=== PATIENT | female | born 1985 | race Caucasian/White ===

== ENCOUNTER → 2024-02-14 17:58 | Outpatient (REF) | payer OTHER, SELFPAY | LOC: HWWDC 17:58 | PROVIDERS: ATTENDING PHYSICIAN Physician Assistant Medical | DX: Z12.31 Encounter for screening mammogram for malignant neoplasm of breast (principal); Z80.3 Family history of malignant neoplasm of breast | CPT/HCPCS: 77063; 77067 ==

== ENCOUNTER → 2024-02-23 13:53 | Outpatient (REF) | payer OTHER, SELFPAY | LOC: WDC 13:53 | PROVIDERS: ATTENDING PHYSICIAN Physician Assistant Medical | DX: R92.30 Dense breasts, unspecified (principal); R92.2 Inconclusive mammogram | CPT/HCPCS: 76641 ==

== ENCOUNTER → 2024-04-09 13:55 | Outpatient (REF) | payer BC, SELFPAY | LOC: HWRAD 13:55 | PROVIDERS: ATTENDING PHYSICIAN Nurse Practitioner Obstetrics & Gynecology; FAMILY PHYSICIAN Physician Assistant Medical | DX: R10.2 Pelvic and perineal pain (principal) | CPT/HCPCS: 76830; 76856 ==

== ENCOUNTER 2024-06-06 12:03 | Emergency (ER) | payer BC, SELFPAY ==
[2024-06-06 12:14] VITALS: BP 139/84
--- NOTE | 2024-06-06 12:19 | ED.PDOC.TRB ---
ED Provider Triage
-
Patient seen by provider in Triage?: Seen in Triage
A medical screening examination has been initiated by a qualified medical provider. Based on the assessment performed at this time, it has been determined that an emergent medical condition may exist and the patient has been informed that further
medical evaluation and possible additional diagnostic testing may be needed.
HPI: This is a medical evaluation conducted in person to initiate diagnostic evaluation and provide initial therapeutics. Please see further documentation by the treating clinician.
GENERAL: Alert ,tearful
EYE: No visual abnormalities.
NECK: Trachea midline
ENT: No visible abnormalities.
LUNGS: No acute respiratory distress
NEUROLOGICAL: Alert and oriented
SKIN: no visible lesions.
MUSCULOSKELETAL: Moving extremities normally
PSYCH: Normal and appropriate interaction.
38-year-old female presenting to the emergency department today with concerns of flank discomfort right-sided worse than left. Feels similar to previous kidney stones. Also has some nausea. No significant reproducible pain on assessment.
Patient is moving freely. Plan for CT scan further assessment of possible stone. Additional labs and medication for symptoms were ordered. At this
[2024-06-06 12:25] VITALS: BMI 35.5
[2024-06-06] MEDS: ZOFRAN 4 MG IV (12:38)
[2024-06-06] MEDS: NSS 1000 IV (12:38)
[2024-06-06] MEDS: TORADOL 15 MG IV (12:38)
--- NOTE | 2024-06-06 12:45 | ED.GENMED ---
History of Present Illness
<SHANDA Henry Last Filed: 06/07/24 16:51>
General
Chief Complaint: Back Pain
Source: patient
Exam Limitations: none
Time Seen by Provider: 06/06/24 12:32
Nursing documentation reviewed up to this point in time: agreed with
History of Present Illness
History of Present Illness:
pt is a 38 y/o F with h/o kidney stones, vertebral artery dissection
pe
here with lowerback pain radiation to R lower abdomen, dec appetite x 3 days, nausea, some sharp pains with urination
she also has been constipated until this am whens he used an enema and was able to move her bowels somewhat
she has a hemorrhoid which is painful
pt has also had some chills
she thinks the lower back pain and urinary sypmtoms remind her of her kidney stone in thepast (has had stent and lithotripsy) but this is different in intensity and she never had the constipation/lack of appetite with it
no known fever
no vaginal symptoms
Past History
<SHANDA Henry Last Filed: 06/07/24 16:51>
Past History
ED Past Medical History: Hypothyroidism, Other (R vertebral artery dissection, Kidney stones, Vertigo) and Other (Psoriasis)
ED Past Surgical History: , Urological and Other ([place] teeth)
Social History
Tobacco: Non-smoker
Alcohol: Occasional
Personal:
Living: with family
Employment: Employed
Family History
Family History: Other
Review of Systems
<SHANDA Henry Last Filed: 06/07/24 16:51>
Review of Systems
Allergies reviewed?: Yes
All Other Systems: Not applicable
Phy Exam
<SHANDA Henry Last Filed: 06/07/24 16:51>
Physical Exam
Physical Exam:
GENERAL: Alert , in no apparent distress
EYE: pupils equal and reactive
NECK: Supple
ENT: o/p clr, mmm.
CARDIAC: Regular rate and rhythm .
LUNGS: Clear breath sounds bilaterally, no acute respiratory distress, no wheezes/rales/rhonchi
ABDOMEN: Soft, moderate right flank and right lower quadrant tenderness, moderate McBurney's point tenderness, no r/g, no cvat, normal bowel sounds
Rectal small external nonbleeding nonthrombosed hemorrhoid, no fecal impaction
NEUROLOGICAL: Alert and oriented, no focal neuro deficits
SKIN: Warm and dry, skin intact.
MUSCULOSKELETAL: No edema, well perfused.
PSYCH: Normal and appropriate interaction.
Course
<Sintia Torres PA-C - Last Filed: 06/07/24 16:51>
Orders/Labs/Results
Orders:
Orders
06/06/24 12:16
Ketorolac [Toradol] 15 mg IV NOW STA
Ondansetron Injectable [Zofran] 4 mg IV NOW STA
Test Result ONCE
06/06/24 12:18
0.9% Sodium Chloride 1000 ml [Nss] 1,000 ml IV BOLUS
06/06/24 12:25
Complete Blood Count/With Diff Urgent
Comprehensive Metabolic Panel Urgent
HCG, Serum Qualitative Screen Urgent
06/06/24 12:41
CT Abd/Pel (IV only)-DH only Urgent
Comment:
Reason For Exam: RLQ pain, back pain, h/o kidney stones, tender
06/06/24 12:55
Urinalysis Reflex To Culture Urgent
Date Specimen was Collected: 06/06/24
Time Specimen was Collected: 12:49
Urine Microscopic Reflex Cult Urgent
06/06/24 17:52
Acetaminophen [Tylenol] 1,000 mg PO NOW STA
Abnormal Lab Results
06/06/24 06/06/24
12:25 12:55
Absolute Lymphs (auto) 0.9 L 10^3/uL
(1.2-3.4)
Lymphocytes % 16.1 L %
(20.5-51.1)
Monocytes % 10.2 H %
(1.7-9.3)
Ur Occult Blood Reflex 1+ A
(Negative)
Urine Bacteria (Reflex) Few A
(Negative)
06/06/24 12:25
06/06/24 12:25
Vital Signs
Initial and Last Documented VS:
Initial Vital Signs
Temp Pulse Resp BP Pulse Ox
99.5 F 78 16 139/84 99
06/06/24 12:14 06/06/24 12:14 06/06/24 12:14 06/06/24 12:14 06/06/24 12:14
Last Documented Vital Signs
Temp Pulse Resp BP Pulse Ox
99.5 F 79 18 126/85 99
06/06/24 12:14 06/06/24 18:05 06/06/24 16:00 06/06/24 18:05 06/06/24 14:00
<GRAEME Chase - Last Filed: 06/06/24 17:59>
Orders/Labs/Results
Orders:
Orders
06/06/24 12:16
Ketorolac [Toradol] 15 mg IV NOW STA
Ondansetron Injectable [Zofran] 4 mg IV NOW STA
Test Result ONCE
06/06/24 12:18
0.9% Sodium Chloride 1000 ml [Nss] 1,000 ml IV BOLUS
06/06/24 12:25
Complete Blood Count/With Diff Urgent
Comprehensive Metabolic Panel Urgent
HCG, Serum Qualitative Screen Urgent
06/06/24 12:41
CT Abd/Pel (IV only)-DH only Urgent
Comment:
Reason For Exam: RLQ pain, back pain, h/o kidney stones, tender
06/06/24 12:55
Urinalysis Reflex To Culture Urgent
Date Specimen was Collected: 06/06/24
Time Specimen was Collected: 12:49
Urine Microscopic Reflex Cult Urgent
06/06/24 17:52
Acetaminophen [Tylenol] 1,000 mg PO NOW STA
Abnormal Lab Results
06/06/24 06/06/24
12:25 12:55
Absolute Lymphs (auto) 0.9 L 10^3/uL
(1.2-3.4)
Lymphocytes % 16.1 L %
(20.5-51.1)
Monocytes % 10.2 H %
(1.7-9.3)
Ur Occult Blood Reflex 1+ A
(Negative)
Urine Bacteria (Reflex) Few A
(Negative)
06/06/24 12:25
06/06/24 12:25
Vital Signs
Initial and Last Documented VS:
Initial Vital Signs
Temp Pulse Resp BP Pulse Ox
99.5 F 78 16 139/84 99
06/06/24 12:14 06/06/24 12:14 06/06/24 12:14 06/06/24 12:14 06/06/24 12:14
Last Documented Vital Signs
Temp Pulse Resp BP Pulse Ox
99.5 F 79 18 126/85 99
06/06/24 12:14 06/06/24 18:05 06/06/24 16:00 06/06/24 18:05 06/06/24 14:00
<Sintia Torres PA-C - Last Filed: 06/07/24 16:51>
MDM/Problems Addressed
Differential Diagnosis Includes:
kidney stone, appendicitis
MDM/Problems Addressed:
right sided flank/abd pain to back x 3 days
some chills
some mild urinary symptoms that are vague
h/o kidney stones, still has appendix
on exam she has tenderness righ tflank and RLQ
no cva tendenress
hemorrhoid nonbleeding on exam nontender
no fecal impaction
will w/u with labs, ct, urine;
signed out to varsha mehta HAND SCUDDER at 1600
varsha:
Assumed care of patient, CAT scan CAT scan shows nonobstructing stones within the lower poles of the bilateral kidneys there is mild prominence of the base the appendix which is similar to prior. New mildly prominent right lower quadrant mesenteric
lymph nodes. Possible mesenteric adenitis as cause of patient's symptoms. Patient was given Toradol earlier and she reports that helped. Will give dose of Tylenol now. On exam she has mild right sided abdominal and lower tenderness however she
is no acute distress none guarding no fever feels well enough to go home. Discussed however close outpatient follow-up family doctor.
<GRAEME Chase - Last Filed: 06/06/24 17:59>
MDM/Problems Addressed
MDM/Problems Addressed:
Assumed care of patient, CAT scan CAT scan shows nonobstructing stones within the lower poles of the bilateral kidneys there is mild prominence of the base the appendix which is similar to prior. New mildly prominent right lower quadrant mesenteric
lymph nodes. Possible mesenteric adenitis as cause of patient's symptoms. Patient was given Toradol earlier and she reports that helped. Will give dose of Tylenol now. On exam she has mild right sided abdominal and lower tenderness however she
is no acute distress none guarding no fever feels well enough to go home. Discussed however close outpatient follow-up family doctor.
<Sintia Torres PA-C - Last Filed: 06/07/24 16:51>
*Critical Care Note
Total Time (30-74mins, 75-104mins- exclusive of procedures): Not Applicable
ED Attending Note
<Sintia Torres PA-C - Last Filed: 06/07/24 16:51>
-
Portions of this chart may have been created with voice recognition software.� Occasional wrong word or��sound alike� substitutions may have occurred due to the inherent limitations of voice recognition software.
Discharge Plan
Departure
Patient Disposition: Home (Routine Discharge)
Date of Disposition: 06/06/24
Time of Disposition: 17:57
Patient with high blood pressure during this ER visit?: Yes
Condition: Good
Covid-19: Not Applicable
Discharge Problem:
Abdominal pain
Instructions: Abdominal Pain, Adult ED
Prescriptions:
No Action
albuterol sulfate 1 PUFF HFA aerosol inhaler
2 puff inhalation R Q4HPRN PRN (Reason: sob)
levothyroxine 112 MCG tablet
112 mcg PO DAILY
guselkumab [Tremfya] 100 MG/ML syringe
100 mg SQ Q3M
aspirin 81 MG tablet,delayed release (DR/EC)
81 mg PO DAILY Qty: 30 0RF
lidocaine 1 PATCH adhesive patch,medicated
1 patch topical DAILY Qty: 7 0RF
meclizine 25 MG tablet
25 mg PO Q8HPRN PRN (Reason: dizziness) Qty: 15 0RF
prednisone 20 MG tablet
40 mg PO DAILY Qty: 10 0RF
ondansetron HCl 4 mg tablet
4 mg PO DAILY PRN (Reason: nausea and vomiting) 4 Days Qty: 7 0RF
Referrals:
Serene Shultz PA [Family Provider] -
Activity Restrictions/Additional Instructions:
As discussed you may alternate between ibuprofen and Tylenol for pain. Follow-up closely with your family doctor in the next several days for reevaluation of your symptoms and return if any worsening of symptoms.
Interventions
Interventions:
*Risk Screen - Suicide Last Done: 06/06/24 12:14
*General Assessment Last Done: 06/06/24 12:14
*Neglect/Abuse Screening Last Done: 06/06/24 12:14
ED- Fall Risk Assessment Last Done: 06/06/24 13:11
*ED COVID-19 Vaccine History Last Done: 06/06/24 13:11
*Nursing Disposition Last Done: 06/06/24 18:05
ED-Musculoskeletal Assessment Last Done: 06/06/24 12:59
Discharge Date and Time
Discharge Date/Time: 06/06/24 18:06
Print Language: YI
[2024-06-06 13:05] LABS: % Basophils 0.4 % (0-2); % Eosinophils 0.4 % (0-6); % Immature Granulocytes 0.2 % (0-0.5); % Lymphocytes 16.1 % (20.5-51.1); % Monocytes 10.2 % (1.7-9.3); % Neutrophils 72.7 % (42.2-75.2); Absolute Lymphocytes 0.9 10^3/uL (1.2-3.4); Absolute Monocytes 0.6 10^3/uL (0.1-0.6); Absolute Neutrophils 4.2 10^3/uL (1.4-6.5); Hematocrit 39.4 % (37.0-47.0); Hemoglobin 13.6 g/dL (12.0-16.0); Mean Corp Hgb Conc. 34.5 g/dL (33.0-37.0); Mean Corpuscular Hgb 28.9 pg (27.0-31.0); Mean Corpuscular Volume 83.8 fL (81.0-99.0); Mean Platelet Volume 10.1 fL (7.4-10.4); Nucleated Red Blood Cells % 0 %; Platelet Count 233 10^3/uL (130-400); Red Cell Dist. Width 12.5 % (11.5-14.5); White Blood Cell Count 5.7 10^3/uL (4.8-10.8)
[2024-06-06 13:08] LABS: ALT (SGPT) 16 U/L (0-35); AST (SGOT) 24 U/L (14-36); Albumin 4.5 g/dl (3.5-5.0); Alkaline Phosphatase 65 U/L (38-126); Blood Urea Nitrogen 16 mg/dl (7-17); Calcium 9.2 mg/dl (8.4-10.2); Carbon Dioxide 24 mmol/L (22-30); Chloride 104 mmol/L (98-107); Estimated Creatinine Clearance 112 ml/min; Glucose 93 mg/dl (70-99); Potassium 4.5 mmol/L (3.5-5.1); Sodium 138 mmol/L (135-145); Total Bilirubin 0.7 mg/dl (0.2-1.3); Total Protein 7.4 g/dl (6.3-8.2); eGFR > 60.00
[2024-06-06 13:11] LABS: HCG, Serum Qualitative Screen Negative
[2024-06-06 13:39] LABS: Urine Albumin Negative (Neg - Trace); Urine Bilirubin Negative (Negative); Urine Character Clear (Clear); Urine Color Yellow; Urine Glucose Negative (Negative); Urine Ketone Negative (Negative); Urine Leukocyte Negative (Negative); Urine Nitrite Negative (Negative); Urine Occult Blood 1+ (Negative); Urine Specific Gravity 1.015 (<1.030); Urine Urobilinogen Negative (Neg - 1+)
[2024-06-06 14:00] VITALS: BP 128/67
[2024-06-06 14:01] LABS: Urine Bacteria Few (Negative); Urine Red Blood Cell 0-2 /HPF (0-2); Urine Squamous Cell >30 /LPF (Few); Urine White Cell 0-2 /HPF (0-5)
[2024-06-06 16:00] VITALS: BP 133/67
[2024-06-06] MEDS: TYLENOL 1000 MG PO (17:57)
[2024-06-06 18:05] VITALS: BP 126/85
== END 2024-06-06 18:06 | disposition home or self-care (01) ==
LOC: EMR 12:03
PROVIDERS: Physician Assistant; EMERGENCY PHYSICIAN Emergency Medicine; FAMILY PHYSICIAN Physician Assistant Medical
DX: R10.31 Right lower quadrant pain (principal); R03.0 Elevated blood-pressure reading, without diagnosis of hypertension
CPT/HCPCS: 99285; 96374; 96375; 96361; 74177; 80053; 81003; 81015; 84703; 85025; Q9967

== ENCOUNTER 2024-06-29 16:12 | Inpatient (IN) | payer BC, SELFPAY ==
[2024-06-29] VITALS (10 sets, daily range): BP systolic 86–124; BP diastolic 52–89; BMI 35.2
--- NOTE | 2024-06-29 11:27 | ED.GENMED ---
History of Present Illness
General
Chief Complaint: Throat Problem
Time Seen by Provider: 06/29/24 11:27
History of Present Illness
History of Present Illness:
HPI: The patient comes in because of throat pain. She was diagnosed with tonsillitis yesterday and placed on amoxicillin because of severe throat pain and right ear pain and was told that there eardrum was 'bulging'. She has been spitting her
saliva out because the pain is so severe. She reports temperatures as high as 101 Fahrenheit.
EXAM:
GENERAL: The patient appears to be in mild to moderate distress
HEENT: Moist oral mucosa, there is erythema noted without definite exudate and there is no sign of HEALTHCARE FINANCIAL ANALYST however exam is somewhat limited, the uvula is midline
CARDIOVASCULAR: No murmurs, normal heart rate, regular rhythm, No chest wall tenderness
PULMONARY: No respiratory distress, breath sounds are clear and equal
ABDOMEN: Soft with no peritoneal signs, no tenderness
NEUROLOGIC: Excellent strength all extremities, no coordination deficits
PSYCHIATRIC: Appropriate mental status, normal insight and judgement
EXTREMITIES: Nontender, no edema, moves all extremities equally
SKIN: No rash, no lesions
TIME OF INITIAL ENCOUNTER: 11:30 AM
NUMBER AND COMPLEXITY OF PROBLEMS ADDRESSED AT THE ENCOUNTER
� Chronic conditions affecting care: Has had PE, has had dissection, IBS, hypothyroidism
� Acute Exacerbation and/or Progression of Chronic Illness: This is an acute problem
� Differential Diagnosis includes: Bacterial pharyngitis, viral pharyngitis, mono
AMOUNT AND/OR COMPLEXITY OF DATA TO BE REVIEWED AND ANALYZED
� I performed an independent evaluation of and my interpretation is:
EKG:
CT:
X-rays:
Laboratory Studies: White count 16.9, hCG negative, LFTs normal, positive mono screen, bicarb slightly low at 20, normal renal function
Other:
� Review of other/old records: The patient was seen here with abdominal pain just under 1 month ago
� Clinical information was obtained by an independent historian: None needed
� Prescriptions/Medications Considered but not given:
� Further testing considered but not performed:
RISK OF COMPLICATIONS AND/OR MORBIDITY OR MORTALITY OF PATIENT MANAGEMENT
� Social determinants of health affecting care: The patient lives at home
� Discussion with other providers:
� Escalation of care including admission/observation vs risk of discharge considered: The patient had difficult IV access and ultimately IV team was able to place a peripheral line. Leukocytosis is noted. She is found to be
mono positive. She is ordered 2 L of fluid and was given Zofran, IV fluids, IV Toradol, and IV steroids. I have also ordered IV clindamycin for the possibility of bacterial superinfection.
Past History
Past History
ED Past Medical History: Hypothyroidism, Other (R vertebral artery dissection, Kidney stones, Vertigo) and Other (Psoriasis)
ED Past Surgical History: , Urological and Other ([place] teeth)
Social History
Tobacco: Non-smoker
Alcohol: Occasional
Personal:
Living: with family
Employment: Employed
Family History
Family History: Other
Phy Exam
Physical Exam
Physical Exam:
See HPI
Course
Orders/Labs/Results
Orders:
Orders
06/29/24 11:38
0.9% Sodium Chloride 1000 ml [Nss] 1,000 ml IV BOLUS
Dexamethasone Sod Phosphate [Decadron] 10 mg IV NOW STA
Ketorolac [Toradol] 15 mg IV NOW STA
06/29/24 12:10
CT Neck With Iv Contrast Urgent
Comment:
Reason For Exam: severe anterior neck / throat pain / cannot reji po
06/29/24 12:27
Test Result ONCE
06/29/24 12:40
Rapid Strep Group A Urgent
JODIE Source: Throat/Pharynx
Specimen Description:
Date Specimen was Collected: 06/29/24
Time Specimen was Collected: 12:25
06/29/24 13:03
Complete Blood Count/With Diff Urgent
Comprehensive Metabolic Panel Urgent
HCG, Serum Qualitative Screen Urgent
Monotest Stat
06/29/24 13:23
Clindamycin 600 mg/50 ml [Cleocin] 600 mg in 50 ml IV NOW
06/29/24 13:43
0.9% Sodium Chloride 1000 ml [Nss] 1,000 ml IV BOLUS
Ondansetron Injectable [Zofran] 4 mg IV NOW STA
Abnormal Lab Results
06/29/24
13:03
WBC 16.9 H 10^3/uL
(4.8-10.8)
Hct 36.0 L %
(37.0-47.0)
Abs Immat Gran (auto) 0.1 H 10^3/uL
(0-0.05)
Absolute Neuts (auto) 14.2 H 10^3/uL
(1.4-6.5)
Absolute Monos (auto) 1.1 H 10^3/uL
(0.1-0.6)
Neutrophils % 83.9 H %
(42.2-75.2)
Lymphocytes % 9.0 L %
(20.5-51.1)
Carbon Dioxide 20 L mmol/L
(22-30)
Glucose 100 H mg/dl
(70-99)
Monoscreen Positive A
(Negative)
06/29/24 13:03
06/29/24 13:03
Vital Signs
Initial and Last Documented VS:
Initial Vital Signs
Temp Pulse Resp BP Pulse Ox
99.3 F 87 20 124/89 98
06/29/24 10:53 06/29/24 10:53 06/29/24 10:53 06/29/24 10:53 06/29/24 10:53
Last Documented Vital Signs
Temp Pulse Resp BP Pulse Ox
99.3 F 88 22 124/89 100
06/29/24 10:53 06/29/24 12:16 06/29/24 12:16 06/29/24 10:53 06/29/24 12:16
*Critical Care Note
Total Time (30-74mins, 75-104mins- exclusive of procedures): Not Applicable
ED Attending Note
-
Portions of this chart may have been created with voice recognition software.� Occasional wrong word or��sound alike� substitutions may have occurred due to the inherent limitations of voice recognition software.
Discharge Plan
Departure
Prescriptions:
No Action
albuterol sulfate 1 PUFF HFA aerosol inhaler
2 puff inhalation R Q4HPRN PRN (Reason: sob)
acetaminophen [Tylenol] 325 mg Tablet
650 mg PO Q6HPRN PRN (Reason: mild pain)
Theragen Tablet
1 tab PO DAILY
levothyroxine 125 mcg Tablet
125 mcg PO DAILY
ibuprofen [Advil] 200 mg Tablet
400 mg PO Q6HPRN PRN (Reason: mild pain)
amoxicillin 400 mg/5 mL suspension for reconstitution
400 mg PO BID
norethindrone (contraceptive) [Incassia] 0.35 mg Tablet
0.35 mg PO DAILY
fluticasone propionate [Flonase] 50 mcg/actuation [place],Suspension
1 spray INTRANASAL DAILYPRN PRN (Reason: allergies)
sertraline 50 mg Tablet
50 mg PO DAILY
Sotyktu 6 mg Tablet
6 mg PO DAILY
Toradol
60 mg PO Q6HPRN PRN (Reason: moderate pain)
Patient Comments:
06/29/24: Unable to confirm, not on [facility] record on 06/28/24 and not in [facility].
Referrals:
Serene Shultz PA [Family Provider] -
Interventions
Interventions:
*Risk Screen - Suicide Last Done: 06/29/24 12:16
*General Assessment Last Done: 06/29/24 10:53
*Neglect/Abuse Screening Last Done: 06/29/24 12:16
ED- Fall Risk Assessment Last Done: 06/29/24 12:16
*ED COVID-19 Vaccine History Last Done: 06/29/24 12:16
ED-EENT Assessment Last Done: 06/29/24 12:16
ED- Pulmonary Assessment Last Done: 06/29/24 12:16
Discharge Date and Time
Print Language: FRISIAN
[2024-06-29 13:13] LABS: % Basophils 0.2 % (0-2); % Eosinophils 0.1 % (0-6); % Immature Granulocytes 0.5 % (0-0.5); % Monocytes 6.3 % (1.7-9.3); % Neutrophils 83.9 % (42.2-75.2); Absolute Immature Granulocytes 0.1 10^3/uL (0-0.05); Absolute Lymphocytes 1.5 10^3/uL (1.2-3.4); Absolute Monocytes 1.1 10^3/uL (0.1-0.6); Absolute Neutrophils 14.2 10^3/uL (1.4-6.5); Hemoglobin 12.4 g/dL (12.0-16.0); Mean Corp Hgb Conc. 34.4 g/dL (33.0-37.0); Mean Corpuscular Hgb 28.6 pg (27.0-31.0); Mean Corpuscular Volume 83.1 fL (81.0-99.0); Nucleated Red Blood Cells % 0 %; Platelet Count 203 10^3/uL (130-400); Red Blood Cell Count 4.33 10^6/uL (4.20-5.40); Red Cell Dist. Width 12.8 % (11.5-14.5); White Blood Cell Count 16.9 10^3/uL (4.8-10.8)
[2024-06-29] MEDS: NSS 1000 IV ×2 (13:31→13:55)
[2024-06-29] MEDS: DECADRON 10 MG IV (13:32)
[2024-06-29] MEDS: TORADOL 15 MG IV (13:32)
[2024-06-29 13:36] LABS: HCG, Serum Qualitative Screen Negative
[2024-06-29 13:37] LABS: ALT (SGPT) 18 U/L (0-35); AST (SGOT) 21 U/L (14-36); Albumin 3.9 g/dl (3.5-5.0); Alkaline Phosphatase 73 U/L (38-126); Blood Urea Nitrogen 12 mg/dl (7-17); Calcium 9.1 mg/dl (8.4-10.2); Carbon Dioxide 20 mmol/L (22-30); Chloride 105 mmol/L (98-107); Estimated Creatinine Clearance > 125 ml/min; Glucose 100 mg/dl (70-99); Potassium 3.6 mmol/L (3.5-5.1); Sodium 139 mmol/L (135-145); Total Bilirubin 0.5 mg/dl (0.2-1.3); Total Protein 6.7 g/dl (6.3-8.2); eGFR > 60.00
[2024-06-29] MEDS: CLEOCIN 50 IV (13:38)
[2024-06-29 13:43] LABS: Monotest Positive (Negative)
[2024-06-29] MEDS: ZOFRAN 4 MG IV (13:51)
--- NOTE | 2024-06-29 15:21 | W.PN.UPDATE ---
Update Note
Progress Note Update
38-year-old female With throat pain. She was diagnosed with tonsillitis and prescribed amoxicillin comes back with fever and throat pain.
I personally performed a history and physical exam of the patient and discussed management with the resident. I reviewed the resident's note and agree with the documented findings and plan of care HPI/CC Except changes in my documentation
CT neck-Heterogeneous right parapharyngeal soft tissues, as noted above, most likely representing an inflammatory/infectious phlegmon with minimal extrinsic impression upon the right side of the upper airway. Developing abscess cannot be excluded.
Right tympanic membrane slight bulge
B/L Tonsillar exudate
CVS: S1-S2 normal
Chest: CTA B/L
Abdomen: Soft, NT / Bowel sounds present
Extremities: No edema, normal pulses
# Sore throat-Acute transudative tonsillitis
Unasyn IV since patient cannot swallow
IV fluids
NSAIDs and steroids for pain control
Monoscreen is positive also- May be false positive- No LNE
Strep throat screening pending
CT of the neck with contrast as above
# History of vertebral artery dissection-MRI did not show stroke- Not on ASA now
# Hypothyroidism-continue Synthroid 125 mcg daily
# History of PE in 2012
# Nephrolithiasis
# Psoriasis/Dermatomyositis on Sotyktu
# Mild prominence of the base of the appendix and mildly prominent right lower quadrant mesenteric lymph nodes-colonoscopy as outpatient
# IBS
# Obesity per BMI
# DVT Prophylaxis- Lovenox
# Full CODE
--- NOTE | 2024-06-29 16:03 | HPS.HSE ---
Family Physician
-
Family Physician: Serene Shultz
Chief Complaint
-
odynophagia
History of Present Illness
38 year old female with PMH of PE, dermatomyositis, psoriasis, hypothyroidism, ulcerative colitis, anxiety/depression, vertebral dissection presented today with odynophagia. Patient states that she was not able to tolerate solids and liquids
yesterday and was also having right ear pain. Patient was seen by her PCP and was given amoxicillin for presumed ear infection. This morning patient had a temperature of 102.1, odynophagia, chills, fatigue. She denies any drainage, ringing of the
ears. She denies any abdominal pain. She admits to some nausea this morning but no vomiting. Patient reports that she was diagnosed with a stomach bug 2 weeks ago which has now resolved. She is not on any anticoagulation medications. She does
take ASA due to h/o vertebral dissection. In ED she is afebrile, comfortable, leukocytosis 16k, mildly elevated BG level.
Medical History
Past Medical History
Past Medical History: Reports Other (PE, dermatomyositis, psoriasis, hypothyroidism, ulcerative colitis, anxiety/depression, right vertebral artery dissection)
Past Surgical History: Reports
Social History
Tobacco: Non-smoker
Alcohol: Occasional
Drug: None
Personal:
Living: With Family
Employment: Employed
Family History
Family History: Not pertinent
Allergies / Home Medications
Allergies reflects when Allergies were last updated in [facility].
Home Medications with original date entered in [facility]
Allergy/Medication List:
Allergies
Allergy/AdvReac Type Severity Reaction Status Date / Time
lorazepam [From Ativan] Allergy hyper, Verified 06/29/24 10:52
yells
prochlorperazine Allergy hyper, Verified 06/29/24 10:52
[From Compazine] eyes roll
back, yells
Sulfa (Sulfonamide Allergy mouth sores Verified 06/29/24 10:52
Antibiotics)
Home Medications
albuterol sulfate 90 mcg/actuation aerosol inhaler 2 puff inhalation R Q4HPRN PRN sob 07/04/19
Toradol 60 mg PO Q6HPRN PRN moderate pain 06/29/24
acetaminophen 325 mg tablet (Tylenol) 650 mg PO Q6HPRN PRN mild pain 06/29/24
amoxicillin 400 mg/5 mL oral suspension 400 mg PO BID 06/29/24
deucravacitinib 6 mg tablet (Sotyktu) 6 mg PO DAILY 06/29/24
fluticasone propionate 50 mcg/actuation nasal spray,suspension 1 spray intranasal DAILYPRN PRN allergies 06/29/24
ibuprofen 200 mg tablet (Advil) 400 mg PO Q6HPRN PRN mild pain 06/29/24
levothyroxine 125 mcg tablet 125 mcg PO DAILY 06/29/24
norethindrone (contraceptive) 0.35 mg tablet (Incassia) 0.35 mg PO DAILY 06/29/24
sertraline 50 mg tablet 50 mg PO DAILY 06/29/24
therapeutic multivitamin 1 tab PO DAILY 06/29/24
Review of Systems
-
Constitutional: Reports Fever, Fatigue and Chills
EENT: Reports Other (throat pain )
Physical Exam
Vital Signs
Vital Signs
Temp Pulse Resp BP Pulse Ox
99.3 F 88 22 117/85 97
06/29/24 10:53 06/29/24 12:16 06/29/24 12:16 06/29/24 14:00 06/29/24 15:15
Physical Exam
General: Conversant and Pain
HEENT: NormoCephalic, Anicteric and Other (erythema and swelling in b/l tonsils with exudates seen in right ); No Ears Appear Normal (budging TM in right, no drainage )
Respiratory: Clear
Cardiac: S1/S2 and Regular Rhythm
GI: Soft, Non Tender, Non Distended and Normal Bowel Sounds
Musculoskeletal: No Edema
Neuro: AO x 3
Psych: Calm
Laboratory Results
-
06/29/24 13:03
06/29/24 13:03
Laboratory Results
Total Bilirubin 0.5 mg/dl (0.2-1.3) 06/29/24 13:03
AST 21 U/L (14-36) 06/29/24 13:03
ALT 18 U/L (0-35) 06/29/24 13:03
Alkaline Phosphatase 73 U/L (38-126) 06/29/24 13:03
Impression/Plan
-
IMPRESSION:
Odynophagia likely due to acute tonsillitis
Leukocytosis
History of PE
Hypothyroidism
History of psoriasis
History of dermatomyositis
Seasonal allergies
PLAN:
Odynophagia likely due to acute tonsillitis
Presence of white exudates, in right tonsils with erythema and edema
Due to the exudates there can be formation of pus
Might need drainage. Neck CT negative for pharyngeal abscess
[place] test is positive.
Start IV Unasyn 3g IV q6 which covers group A Streptococcus
Tylenol solution for fever and pain
Toradol IV 10 mg q6 PRN for pain
IV Decadron 4 mg IV q8
Consult ENT
Monitor temp curve and WBC count
Will start clear liquid diet
Leukocytosis
due to acute tonsillitis
IV Unasyn
repeat CBC in am
History of PE
not currently on anticoagulation
Hypothyroidism
continue levothyroxine
History of psoriasis
Continue home medication
#History of dermatomyositis
#seasonal allergies - continue flonase an albuterol
DVT ppx- lovenox
CODE STATUS - full code
Diet- clear liquid
--- NOTE | 2024-06-29 16:58 | W.PN.UPDATE ---
Update Note
Progress Note Update
Reached out to ENT, Dr Sargent.
CT scan shows no abscess on neck CT so to continue IV Unasyn and Decadron. If clinical improvement on IV Unasyn then transition to Augmentin per ENT with outpatient f/u. Increasing Decadron to 8 mg IV q8. No history of Dm.
[2024-06-29] MEDS: ZOLOFT 50 MG PO (18:24)
[2024-06-29] MEDS: LOVENOX 40 MG SC (18:24)
[2024-06-29] MEDS: UNASYN IV (18:25)
[2024-06-29] MEDS: TORADOL 10 MG IV (20:44)
[2024-06-29] MEDS: FLUSH (NSS) 1 FLUSH IV ×2 (20:47→21:58)
[2024-06-29] MEDS: DECADRON 8 MG IV (21:54)
[2024-06-30] MEDS: UNASYN IV ×5 (00:04→23:07)
[2024-06-30] MEDS: FLUSH (NSS) 1 FLUSH IV (00:05)
[2024-06-30] MEDS: TORADOL 10 MG IV ×3 (02:41→23:07)
[2024-06-30] MEDS: SYNTHROID 125 MCG PO (05:51)
[2024-06-30] MEDS: DECADRON 8 MG IV (05:52)
[2024-06-30] MEDS: FLUSH (NSS) 2 FLUSH IV (05:53)
[2024-06-30 06:00] VITALS: BMI 34.8
[2024-06-30 07:00] VITALS: BP 117/67
[2024-06-30] MEDS: THERAGRAN 1 TABLET PO (07:44)
[2024-06-30] MEDS: ZOLOFT 50 MG PO (07:44)
--- NOTE | 2024-06-30 12:19 | W.PN.HOSP.TC ---
Addendum entered and electronically signed by Bob Cody MD 06/30/24 13:14:
sugar elevated.
Check A1C
Accu check AC HS
Original Note:
Today's Communication/Plan
-
Better today
change steroids to PO
IV AB Trial of a diet
If stable will discharge tomorrow
Assessment / Plan
Assessment / Plan
38-year-old female With throat pain. She was diagnosed with tonsillitis and prescribed amoxicillin comes back with fever and throat pain.
CT neck-Heterogeneous right parapharyngeal soft tissues, as noted above, most likely representing an inflammatory/infectious phlegmon with minimal extrinsic impression upon the right side of the upper airway. Developing abscess cannot be excluded.
B/L Tonsillar exudate and redness better
CVS: S1-S2 normal
Chest: CTA B/L
Abdomen: Soft, NT
# Sore throat-Acute transudative tonsillitis
Unasyn IV
IV fluids
NSAIDs for pain control
Steroid taper
Monoscreen is positive also- May be false positive- No LNE
Strep throat screening pending
ENT recommended steroid taper and AB
CT of the neck with contrast as above
# History of vertebral artery dissection-MRI did not show stroke- Not on ASA now
# Hypothyroidism-continue Synthroid 125 mcg daily
# History of PE in 2012
# Nephrolithiasis
# Psoriasis/Dermatomyositis on Sotyktu
# Mild prominence of the base of the appendix and mildly prominent right lower quadrant mesenteric lymph nodes-colonoscopy as outpatient
# IBS
# Obesity per BMI
# DVT Prophylaxis- Lovenox
# Full CODE
D/W RN
Anticipated Discharge: Within 24 hours
Subjective/Interval History
-
Date of Service: June 30, 2024
Objective Data
-
Vital Signs:
Vital Signs
Temp Pulse Resp BP Pulse Ox
98.0 F 63 17 117/67 100
06/30/24 11:00 06/30/24 07:00 06/30/24 07:00 06/30/24 07:00 06/30/24 09:28
I&O
06/29/24 06/30/24 07/01/24
06:59 06:59 06:59
Intake Total 480 / 480
Balance 480 / 480
[2024-06-30] MEDS: DELTASONE 40 MG PO (12:32)
[2024-06-30 13:09] LABS: % Basophils 0.1 % (0-2); % Immature Granulocytes 0.5 % (0-0.5); % Lymphocytes 4.8 % (20.5-51.1); % Monocytes 1.3 % (1.7-9.3); % Neutrophils 93.3 % (42.2-75.2); Absolute Immature Granulocytes 0.1 10^3/uL (0-0.05); Absolute Monocytes 0.3 10^3/uL (0.1-0.6); Absolute Neutrophils 18.9 10^3/uL (1.4-6.5); Hematocrit 37.2 % (37.0-47.0); Hemoglobin 13.1 g/dL (12.0-16.0); Mean Corp Hgb Conc. 35.2 g/dL (33.0-37.0); Mean Corpuscular Hgb 29.8 pg (27.0-31.0); Mean Corpuscular Volume 84.5 fL (81.0-99.0); Mean Platelet Volume 10.2 fL (7.4-10.4); Nucleated Red Blood Cells % 0 %; Platelet Count 241 10^3/uL (130-400); Red Cell Dist. Width 12.6 % (11.5-14.5); White Blood Cell Count 20.2 10^3/uL (4.8-10.8)
[2024-06-30 13:10] LABS: Blood Urea Nitrogen 14 mg/dl (7-17); Calcium 9.2 mg/dl (8.4-10.2); Carbon Dioxide 18 mmol/L (22-30); Chloride 107 mmol/L (98-107); Estimated Creatinine Clearance > 125 ml/min; Glucose 279 mg/dl (70-99); Potassium 3.6 mmol/L (3.5-5.1); Sodium 139 mmol/L (135-145); eGFR > 60.00
[2024-06-30 14:15] LABS: Glycohemoglobin (HgbA1c) 5.2 % (4.0-5.6)
[2024-06-30 15:00] VITALS: BP 130/78
--- NOTE | 2024-06-30 17:11 | CM ---
met with patient at [facility].lingives with her and son in [facility] [place] with 2 beatriz,her bed and bath is on second level,she is totally I amb and with her adl.she has nevr had a vn or been to ip rehab.p
cp is dr whitfield and she uses [facility] in [place].
PMH:vertebral artery dissection,pe,hypothyroid
patient is adm with tonsillitis.strep throat results pending,iv unasyn,iv vanco,ivf,trial diet,changing steroids to po.
Plan:dc home with no needs when stable for dc.
[2024-06-30] MEDS: LOVENOX 40 MG SC (17:47)
[2024-06-30] MEDS: TYLENOL ORAL SOLUTION 650 MG PO (20:14)
[2024-06-30] MEDS: MUCINEX 600 MG PO (23:06)
[2024-06-30 23:30] VITALS: BP 107/69
[2024-07-01] MEDS: SYNTHROID 125 MCG PO (05:55)
[2024-07-01] MEDS: UNASYN IV (05:56)
[2024-07-01 07:00] VITALS: BP 106/63
[2024-07-01] MEDS: DELTASONE 40 MG PO (08:05)
[2024-07-01] MEDS: THERAGRAN 1 TABLET PO (08:05)
[2024-07-01] MEDS: MUCINEX 600 MG PO (08:06)
[2024-07-01] MEDS: TORADOL 10 MG IV (08:13)
[2024-07-01] MEDS: ZOLOFT 50 MG PO (08:13)
[2024-07-01 08:21] LABS: Glucose - Point of Care 118 mg/dl (70-99)
[2024-07-01 10:22] LABS: Hematocrit 34.9 % (37.0-47.0); Hemoglobin 12.3 g/dL (12.0-16.0); Mean Corp Hgb Conc. 35.2 g/dL (33.0-37.0); Mean Corpuscular Hgb 28.9 pg (27.0-31.0); Mean Corpuscular Volume 81.9 fL (81.0-99.0); Mean Platelet Volume 10.7 fL (7.4-10.4); Platelet Count 252 10^3/uL (130-400); Red Blood Cell Count 4.26 10^6/uL (4.20-5.40); Red Cell Dist. Width 13.1 % (11.5-14.5); White Blood Cell Count 18.6 10^3/uL (4.8-10.8)
[2024-07-01 10:37] LABS: Blood Urea Nitrogen 24 mg/dl (7-17); Calcium 9.3 mg/dl (8.4-10.2); Carbon Dioxide 19 mmol/L (22-30); Chloride 107 mmol/L (98-107); Estimated Creatinine Clearance 111 ml/min; Glucose 173 mg/dl (70-99); Potassium 3.7 mmol/L (3.5-5.1); Sodium 142 mmol/L (135-145); eGFR > 60.00
--- NOTE | 2024-07-01 11:20 | W.PN.ENT ---
Today's Communication
-
d/c planning
Impression / Plan
-
OK to d/c home w pred taper as prev recommended. Can f/u w ENT as out pt 2-3wk after d/c. [phone]
Subjective Data
-
Patient seen and examined. ENT called bc patient complained of left throat pain.
Objective Data
-
Vital Signs
Temp Pulse Resp BP Pulse Ox
98.2 F 73 18 106/63 100
07/01/24 11:00 07/01/24 07:00 07/01/24 07:00 07/01/24 07:00 07/01/24 07:00
Intake & Output
06/30/24 07/01/24 07/02/24
06:59 06:59 06:59
Intake:
Oral fluids 240 / 240 2310 / 2310
IV piggybacks 240 / 240
Other:
Number of approximated MODERATE 3 3
amounts of urine
Lab Results
07/01/24 10:02
07/01/24 10:02
Calcium 9.3 mg/dl (8.4-10.2) 07/01/24 10:02
Total Bilirubin 0.5 mg/dl (0.2-1.3) 06/29/24 13:03
AST 21 U/L (14-36) 06/29/24 13:03
ALT 18 U/L (0-35) 06/29/24 13:03
Alkaline Phosphatase 73 U/L (38-126) 06/29/24 13:03
Physical Exam
-
B/l tonsillar exudates, erythema, widely patent airway, minimal cervical LAD
--- NOTE | 2024-07-01 11:29 | W.PN.HOSP.TC ---
Addendum entered and electronically signed by Bob Cody MD 07/01/24 11:59:
Leucocytosis due to steroids.
D/W ENT
Unclear if this is [place]. But precautions discussed to avo8id injury etc.
Also how it spreads discussed.
OK for discharge
Total discharge time 36 min
Original Note:
Today's Communication/Plan
-
She looks better
Tolerating diet
Wants to see ENT
Hopefully discharge today if stable
Assessment / Plan
Assessment / Plan
38-year-old female With throat pain. She was diagnosed with tonsillitis and prescribed amoxicillin comes back with fever and throat pain.
CT neck-Heterogeneous right parapharyngeal soft tissues, as noted above, most likely representing an inflammatory/infectious phlegmon with minimal extrinsic impression upon the right side of the upper airway. Developing abscess cannot be excluded.
B/L Tonsillar exudate and redness better
CVS: S1-S2 normal
Chest: CTA B/L
Abdomen: Soft, NT
says she haqs more pain on the left and wants to see ENT .
# Sore throat-Acute transudative tonsillitis
Unasyn IV
NSAIDs for pain control
Steroid taper
Monoscreen is positive also- May be false positive- No LNE. H/O [place] in the past.
Strep throat neg
ENT recommended steroid taper and AB
CT of the neck with contrast as above
# History of vertebral artery dissection-MRI did not show stroke- Not on ASA now
# Hyperglycemia-hemoglobin A1c 5.2. Hyperglycemia likely secondary to steroids. Will get better as steroids are tapered.
# Hypothyroidism-continue Synthroid 125 mcg daily
# History of PE in 2012
# Nephrolithiasis
# Psoriasis/Dermatomyositis on Sotyktu
# Mild prominence of the base of the appendix and mildly prominent right lower quadrant mesenteric lymph nodes-colonoscopy as outpatient
# IBS
# Obesity per BMI
# DVT Prophylaxis- Lovenox
# Full CODE
D/W RN
D/W ENT - will see pt today
Anticipated Discharge: Today
Subjective/Interval History
-
Date of Service: July 01, 2024
Objective Data
-
Labs:
Laboratory Results
07/01/24
10:02
WBC 18.6 H
Hgb 12.3
Hct 34.9 L
Plt Count 252
Sodium 142
Potassium 3.7
Chloride 107
Carbon Dioxide 19 L
BUN 24 H
Creatinine 0.7
Glucose 173 H
Calcium 9.3
Vital Signs:
Vital Signs
Temp Pulse Resp BP Pulse Ox
98.2 F 73 18 106/63 100
07/01/24 11:00 07/01/24 07:00 07/01/24 07:00 07/01/24 07:00 07/01/24 07:00
I&O
06/30/24 07/01/24 07/02/24
06:59 06:59 06:59
Intake Total 480 / 480 2310 / 2310
Balance 480 / 480 2310 / 2310
--- NOTE | 2024-07-01 12:00 | W.DS.TRANS ---
Addendum entered and electronically signed by Bob Cody MD 07/01/24 15:04:
Dictation- [id number]
Original Note:
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
-
Discharge Instructions:
Discharge Diagnosis/Procedures Acute tonsillitis, positive [place] screen,
hypothyroidism, history of PE, psoriasis
Diet As tolerated
Driving Restrictions As prior to admission
Blood Work HbA1C 6 months.
Instructions:
Stand-Alone Forms:
Changes to Home Medications: Yes
Discharge Medications:
DC Medications w/original date entered in [facility]
albuterol sulfate 90 mcg/actuation aerosol inhaler 2 puff inhalation R Q4HPRN PRN sob 07/04/19
acetaminophen 325 mg tablet (Tylenol) 650 mg PO Q6HPRN PRN mild pain 06/29/24
deucravacitinib 6 mg tablet (Sotyktu) 6 mg PO DAILY Autoimmune Disorder 06/29/24
fluticasone propionate 50 mcg/actuation nasal spray,suspension 1 spray intranasal DAILYPRN PRN allergies 06/29/24
ibuprofen 200 mg tablet (Advil) 400 mg PO Q6HPRN PRN mild pain 06/29/24
levothyroxine 125 mcg tablet 125 mcg PO DAILY@06 Thyroid 06/29/24
norethindrone (contraceptive) 0.35 mg tablet (Incassia) 0.35 mg PO DAILY Hormonal Agent 06/29/24
sertraline 50 mg tablet 50 mg PO DAILY Depression 06/29/24
therapeutic multivitamin 1 tab PO DAILY 06/29/24
acetaminophen 650 mg/20.3 mL oral solution 650 mg (20.3 mL) PO Q4HPRN PRN fever and pain #0 mL 07/01/24
amoxicillin 875 mg-potassium clavulanate 125 mg tablet 1 tab PO BID throat #10 tabs 07/01/24
famotidine 20 mg tablet (Pepcid) 20 mg PO BID while on steroids and Ibuprofen #10 tabs 07/01/24
prednisone 10 mg tablet See Rx Instructions .Route .COMPLEX throat #15 tabs 07/01/24
Home Medication Changes
new
amoxicillin 875 mg-potassium clavulanate 125 mg tablet 1 tab PO BID throat #10 tabs 07/01/24
famotidine 20 mg tablet (Pepcid) 20 mg PO BID while on steroids and Ibuprofen #10 tabs 07/01/24
prednisone 10 mg tablet See Rx Instructions .Route .COMPLEX throat #15 tabs 07/01/24
Pending Results: No
[2024-07-01 12:04] LABS: Glucose - Point of Care 111 mg/dl (70-99)
[2024-07-01] MEDS: TYLENOL ORAL SOLUTION 650 MG PO (12:38)
[2024-07-01 13:10] VITALS: BP 103/61
--- NOTE | 2024-07-01 14:12 | W.PN.UPDATE ---
Update Note
Progress Note Update
Reevaluated the patient at her request. Throat with less exudates on the left side now.
Stable for discharge
== END 2024-07-01 15:12 | disposition home or self-care (01) | DRG 153 ==
LOC: 3 WEST ACU 16:12
PROVIDERS: ADMITTING PHYSICIAN Hospitalist; EMERGENCY PHYSICIAN Emergency Medicine; FAMILY PHYSICIAN Physician Assistant Medical
DX: J03.90 Acute tonsillitis, unspecified (principal); E03.9 Hypothyroidism, unspecified; L40.8 Other psoriasis; J30.2 Other seasonal allergic rhinitis; N20.0 Calculus of kidney; B27.90 Infectious mononucleosis, unspecified without complication; E66.9 Obesity, unspecified; Z68.34 Body mass index [BMI] 34.0-34.9, adult; Z88.2 Allergy status to sulfonamides; Z88.8 Allergy status to other drugs, medicaments and biological substances; Z79.890 Hormone replacement therapy; Z79.899 Other long term (current) drug therapy; Z86.711 Personal history of pulmonary embolism
CPT/HCPCS: 70491; 80048; 80053; 82962; 83036; 84703; 85025; 85027; 86308; 87070; 87880; 96361; 96365; 96375; 99285; Q9967

== ENCOUNTER 2024-11-04 14:47 | Emergency (ER) | payer BC, SELFPAY ==
[2024-11-04 14:56] VITALS: BP 123/85
[2024-11-04] MEDS: TYLENOL 1000 MG PO (16:36)
[2024-11-04] MEDS: ADACEL 0.5 ML IM (16:36)
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
== END 2024-11-04 17:28 | disposition home or self-care (01) ==
LOC: EMR 14:47
PROVIDERS: EMERGENCY PHYSICIAN Emergency Medicine; FAMILY PHYSICIAN Physician Assistant Medical
DX: S01.81XA Laceration without foreign body of other part of head, initial encounter (principal); S93.402A Sprain of unspecified ligament of left ankle, initial encounter; R51.9 Headache, unspecified; W18.09XA Striking against other object with subsequent fall, initial encounter; X50.1XXA Overexertion from prolonged static or awkward postures, initial encounter; E03.9 Hypothyroidism, unspecified; L40.9 Psoriasis, unspecified; K58.9 Irritable bowel syndrome, unspecified; Z87.442 Personal history of urinary calculi; Z86.711 Personal history of pulmonary embolism
CPT/HCPCS: 99283; 29515; 12011; 73610; 90715

== ENCOUNTER → 2025-02-25 06:58 | Outpatient (REF) | payer BC, SELFPAY | LOC: HWWDC 06:58 | PROVIDERS: ATTENDING PHYSICIAN Physician Assistant Medical; REFERRING PHYSICIAN Nurse Practitioner Obstetrics & Gynecology | DX: Z12.31 Encounter for screening mammogram for malignant neoplasm of breast (principal) | CPT/HCPCS: 77063; 77067 ==

== ENCOUNTER → 2025-03-13 09:30 | Outpatient (REF) | payer BC, SELFPAY | LOC: WDC 09:30 | PROVIDERS: ATTENDING PHYSICIAN Physician Assistant Medical; REFERRING PHYSICIAN Nurse Practitioner Obstetrics & Gynecology | DX: R92.8 Other abnormal and inconclusive findings on diagnostic imaging of breast (principal) | CPT/HCPCS: 76642 ==

== ENCOUNTER 2025-05-20 13:39 | Emergency (ER) | payer BC, SELFPAY ==
[2025-05-20 13:41] VITALS: BP 128/81
[2025-05-20 14:26] LABS: Hematocrit 41.3 % (37.0-47.0); Hemoglobin 13.9 g/dL (12.0-16.0); Mean Corp Hgb Conc. 33.7 g/dL (33.0-37.0); Mean Corpuscular Volume 85.7 fL (81.0-99.0); Nucleated Red Blood Cells % 0 %; Platelet Count 322 10^3/uL (130-400); Red Cell Dist. Width 13.0 % (11.5-14.5)
[2025-05-20 14:39] LABS: COVID-19 Antigen Negative (Negative)
[2025-05-20 14:48] LABS: HCG, Serum Qualitative Screen Negative
[2025-05-20 14:50] LABS: ALT (SGPT) 20 U/L (0-35); AST (SGOT) 18 U/L (14-36); Albumin 4.0 g/dl (3.5-5.0); Alkaline Phosphatase 56 U/L (38-126); Blood Urea Nitrogen 17 mg/dl (7-17); Calcium 9.3 mg/dl (8.4-10.2); Carbon Dioxide 27 mmol/L (22-30); Chloride 102 mmol/L (98-107); Glucose 87 mg/dl (70-99); Potassium 4.5 mmol/L (3.5-5.1); Sodium 134 mmol/L (135-145); Total Protein 6.8 g/dl (6.3-8.2); eGFR > 60.00
[2025-05-20 14:56] LABS: Troponin I < 0.012 ng/ml
[2025-05-20 14:58] LABS: INR 0.94; PT 12.9 Sec (11.4-14.6)
[2025-05-20] MEDS: TYLENOL 1000 MG PO (20:37)
[2025-05-20 20:47] VITALS: BMI 36.3
[2025-05-20 20:48] VITALS: BP 112/73
[2025-05-20 21:42] LABS: D-Dimer 0.29 ug/mlFEU (0.00-0.50)
--- NOTE | 2025-05-20 22:07 | ED.GENMED ---
History of Present Illness
General
Chief Complaint: Breathing Problem
Source: patient
Time Seen by Provider: 05/20/25 19:48
History of Present Illness
History of Present Illness:
Note:
CHIEF COMPLAINT(S)
Shortness of breath, chest tightness, lightheadedness, ear discomfort.
HISTORY OF PRESENT ILLNESS
The patient is a 39-year-old female who presents with shortness of breath, chest tightness, and dizziness. The patient reports a recent history of COVID-19, with an initial positive test over a week ago followed by a negative test this past Tuesday.
She states that her COVID symptoms improved, but she is now experiencing tightness in the right upper chest, which she describes as a rubber band stretching. The patient has a past medical history of pulmonary embolism (PE) on the right side and
describes the current chest sensations as similar to her previous PE. She experiences windedness with minimal exertion and episodes of lightheadedness.
The patient reports a sensation of ear fullness and recurring issues with her ears, including the presence of a tympanostomy tube in the right ear, placed due to persistent fluid and infections. She indicates an arterial dissection in 2019 in the
cervical region, managed with antiplatelet therapy.
Despite this history, she is not currently on blood-thinning medications as per previous medical advice. The patient has experienced anxiety, difficulties sleeping, and fatigue following the resolution of the acute COVID-19 symptoms. She has also
ceased the use of cough medicine containing codeine four days ago due to concerns about its effects.
PAST MEDICAL AND SURIGICAL HISTORY
- Pulmonary Embolism (PE) on the right side.
- Arterial Dissection in 2019, treated with antiplatelet medication for one and a half years.
- History of dermatomyositis diagnosed and in remission since 2012.
ADDITIONAL HISTORY OBTAINED FROM SOURCES OTHER THAN THE PATIENT
No additional history obtained.
CHRONIC MEDICAL CONDITIONS SIGNIFICANTLY AFFECTING CARE
- Dermatomyositis, currently in remission.
SOCIAL DETERMINANTS AFFECTING HEALTH
The patient reports significant fatigue and inability to perform daily tasks such as walking to the car due to breathlessness.
REVIEW OF SYSTEMS
- Respiratory: Reports intermittent cough. No production of blood-tinged sputum.
- Cardiovascular: Describes chest tightness and past history of PE.
- Neurological: Experiences frequent dizziness and lightheadedness.
- Ear, Nose, and Tongue: Ear discomfort with a history of ear tube placement.
- General: Recent history of feeling jittery and sleep disturbances.
PHYSICAL EXAM
General: Alert, no acute distress.
Skin: Warm, dry.
Head: Normocephalic, atraumatic.
Neck: Supple, trachea midline.
Eye, Ears, Nose, Mouth and Throat: Oral mucosa moist. Right tympanic membrane normal with exception of scarring noted at the middle portion.
Cardiovascular: Normal peripheral perfusion, no edema.
Respiratory: Respirations are non-labored.
Gastrointestinal: Abdomen nondistended.
Back: Normal range of motion, Normal alignment.
Musculoskeletal: Normal ROM, normal strength.
Neurological: Alert and oriented to person, place, time, and situation. No focal neurological deficit observed.
Psychiatric: Cooperative, appropriate mood & affect.
PLAN
1. Obtain a D-Dimer test to evaluate the presence of possible thrombotic activity. If negative, rule out pulmonary embolism. Further imaging such as a CT scan to be considered if positive.
2. Administer Extra Strength Tylenol for pain relief, especially addressing ear pressure and discomfort. Consider Toradol if the response to Tylenol is insufficient.
3. Monitor symptoms and review results of blood tests to determine if further intervention is necessary.
DIFFERENTIAL DIAGNOSIS
The Differential Diagnosis includes, in no particular order and is not limited to:
1. Recurrent Pulmonary Embolism
2. [id number] Syndrome
3. Anxiety Disorder
4. Cardiovascular Activities (related to previous arterial dissection)
5. Respiratory Infection (exacerbated by previous COVID-19)
6. Eustachian Tube Dysfunction (related to tympanostomy)
7. Musculoskeletal Pain
8. Acute Coronary Syndrome
9. Thyroid Dysfunction
10. Vestibular Disorder
Disposition:
SUMMARY OF ENCOUNTER
The patient, a female recovering from a recent COVID-19 infection, presented with generalized weakness and chest discomfort, expressing concern about a pulmonary embolism due to her past medical history. An EKG was performed, which showed normal
sinus rhythm, normal axis, and no acute ischemic changes. Blood tests revealed a normal basic metabolic panel (BMP), normal troponin levels, and negative D-dimer, effectively ruling out a pulmonary embolism. A COVID-19 test was also negative.
However, leukocytosis was noted with a white blood cell count of 15,000, though hemoglobin and platelet levels were normal, with no left shift observed. Her symptoms were suspected to be post-viral in nature. Recommendations included vitamin D,
vitamin C, and zinc supplementation, increased fluid intake, and to follow up with her primary care physician (PCP) on an outpatient basis. The patient was deemed okay for discharge.
DISPOSITION
Discharge
ASSESSMENT
Post-viral syndrome following recent COVID-19 infection; generalized weakness and chest discomfort without evidence of pulmonary embolism.
PLAN
The patient is advised to take vitamin D, vitamin C, and zinc supplements, increase fluid intake, and follow up with her primary care physician (PCP) as an outpatient.
INDEPENDENT REVIEW OF LABS AND INTERPRETATION OF TESTS
My independent review of the EKG indicates normal sinus rhythm with a normal axis and no acute ischemic changes.
My independent review of the BMP is normal.
My independent review of the troponin is normal.
My independent review of D-Dimer indicates a negative result, ruling out pulmonary embolism.
My independent review of the COVID test is negative.
My independent review of the CBC shows leukocytosis with a white blood cell count of 15,000, but hemoglobin and platelets are normal, with no left shift noted.
PATIENT EDUCATION AND COUNSELING
The patient was counseled on the potential post-viral nature of her symptoms following COVID-19. Recommendations were provided regarding supplementation with vitamin D, vitamin C, and zinc, in addition to increasing fluid intake to support recovery.
FOLLOW-UP INSTRUCTIONS
The patient was instructed to follow up with her primary care physician for ongoing management and evaluation.
MEDICAL DECISION MAKING
-Complexity of Data Reviewed: Chronic conditions affecting care include history of pulmonary embolism. Differential diagnoses considered included recurrent pulmonary embolism, [id number] syndrome, anxiety disorder, cardiovascular activities,
respiratory infection, Eustachian tube dysfunction, musculoskeletal pain, acute coronary syndrome, thyroid dysfunction, and vestibular disorder.
-Data:
Category 1
Lab tests reviewed include EKG, BMP, troponin, D-Dimer, and CBC.
-Risk:
The potential post-viral syndrome was considered, and the patient was advised on supportive measures including supplements and increased fluid intake. Prescription medication was not prescribed, focusing instead on outpatient management with
follow-up for potential changes. Consideration of Admission/Observation was considered given the complexity and risk of the patients presentation. However, the patient is deemed safe for outpatient management due to stable work-up results,
reassuring examination findings, and agreement for discharge with reliable follow-up.
DIAGNOSIS
Post-Viral Syndrome (ICD-10: B94.8)
Leukocytosis (ICD-10: D72.829)
Past History
Past History
ED Past Medical History: Hypothyroidism, Other (R vertebral artery dissection, Kidney stones, Vertigo) and Other (Psoriasis)
ED Past Surgical History: , Urological and Other ([place] teeth)
Social History
Tobacco: Non-smoker
Alcohol: Occasional
Personal:
Living: with family
Employment: Employed
Family History
Family History: Other
Phy Exam
Physical Exam
Physical Exam:
.
Course
Orders/Labs/Results
Orders:
Orders
05/20/25 13:43
Electrocardiogram (*1) Urgent
Reason for Study: Chest Pain
EKG- Treatment ONCE
05/20/25 13:44
Test Result ONCE
Chest [CR Chest - 2 Views ] Urgent
Comment:
Reason For Exam: MONTERO
05/20/25 14:01
Comprehensive Metabolic Panel Urgent
HCG, Serum Qualitative Screen Urgent
Comment: Notify provider if positive test present
Prothrombin Time Urgent
05/20/25 14:02
COVID-19 Antigen Urgent
Source: Nasal Swab
Complete Blood Count/With Diff Urgent
Troponin I Urgent
05/20/25 20:12
Acetaminophen [Tylenol] 1,000 mg PO NOW STA
05/20/25 21:15
D-Dimer Urgent
Abnormal Lab Results
05/20/25 05/20/25
14:01 14:02
WBC 15.3 H 10^3/uL
(4.8-10.8)
Abs Immat Gran (auto) 0.3 H 10^3/uL
(0-0.05)
Absolute Neuts (auto) 10.8 H 10^3/uL
(1.4-6.5)
Absolute Monos (auto) 0.7 H 10^3/uL
(0.1-0.6)
Immature Gran % 2.1 H %
(0-0.5)
Sodium 134 L mmol/L
(135-145)
05/20/25 14:02
05/20/25 14:01
Vital Signs
Initial and Last Documented VS:
Initial Vital Signs
Temp Pulse Resp BP Pulse Ox
98.6 F 62 19 128/81 99
05/20/25 13:41 05/20/25 13:41 05/20/25 13:41 05/20/25 13:41 05/20/25 13:41
Last Documented Vital Signs
Temp Pulse Resp BP Pulse Ox
98.6 F 74 16 132/76 100
05/20/25 13:41 05/20/25 23:40 05/20/25 23:40 05/20/25 23:40 05/20/25 23:40
*Pulse Oximetry
SaO2: 99
Oxygen Mode of Delivery: Room air
Patient hypoxic: no
*Critical Care Note
Total Time (30-74mins, 75-104mins- exclusive of procedures): Not Applicable
ED Attending Note
-
Portions of this chart may have been created with voice recognition software.� Occasional wrong word or��sound alike� substitutions may have occurred due to the inherent limitations of voice recognition software.
Discharge Plan
Departure
Patient Disposition: Home (Routine Discharge)
Date of Disposition: 05/20/25
Time of Disposition: 22:29
Patient with high blood pressure during this ER visit?: No
Discharge Problem:
Weakness generalized, Chest pain, Dyspnea
Instructions: Chest Pain (DC), Shortness of breath, Weakness
Prescriptions:
No Action
albuterol sulfate 1 PUFF HFA aerosol inhaler
2 puff inhalation R Q4HPRN PRN (Reason: sob)
acetaminophen [Tylenol] 325 mg Tablet
650 mg PO Q6HPRN PRN (Reason: mild pain)
therapeutic multivitamin Tablet
1 tab PO DAILY
levothyroxine 125 mcg Tablet
125 mcg PO DAILY@06
ibuprofen [Advil] 200 mg Tablet
400 mg PO Q6HPRN PRN (Reason: mild pain)
norethindrone (contraceptive) [Incassia] 0.35 mg Tablet
0.35 mg PO DAILY
fluticasone propionate 50 mcg/actuation [place],Suspension
1 spray INTRANASAL DAILYPRN PRN (Reason: allergies)
sertraline 50 mg Tablet
50 mg PO DAILY
Sotyktu 6 mg Tablet
6 mg PO DAILY
acetaminophen 650 mg/20.3 mL Solution
650 mg PO Q4HPRN PRN (Reason: fever and pain) Qty: 0 0RF
prednisone 10 mg Tablet
See Rx Instructions .ROUTE .COMPLEX Qty: 15 0RF
Rx Instructions:
Take By Mouth:
40 mg daily x1 day, 30 mg daily x2 days,
20 mg daily x2 days, 10 mg daily x1 day.
amoxicillin-pot clavulanate 875-125 mg tablet
1 tab PO BID Qty: 10 0RF
famotidine [Pepcid] 20 mg tablet
20 mg PO BID Qty: 10 0RF
Referrals:
Serene Shultz PA [Family Provider, Family Practice]
Activity Restrictions/Additional Instructions:
Please drink plenty of fluids. Please consider using vitamin C, vitamin D and zinc as discussed. Return immediately for difficulty breathing, worsening chest discomfort, coughing up blood, fevers or any other concerns. Please see your doctor in
the next 3 to 5 days for follow-up and reevaluation.
Interventions
Interventions:
*Risk Screen - Suicide Last Done: 05/20/25 13:41
*General Assessment Last Done: 05/20/25 13:41
*Neglect/Abuse Screening Last Done: 05/20/25 13:41
*ED- Fall Risk Assessment Last Done: 05/20/25 21:00
*ED COVID-19 Vaccine History Last Done: 05/20/25 21:00
*Nursing Disposition Last Done: 05/20/25 23:40
ED- Cardiac Assessment Last Done: 05/20/25 20:39
ED- Pulmonary Assessment Last Done: 05/20/25 20:39
Discharge Date and Time
Discharge Date/Time: 05/20/25 23:40
Print Language: KENYAN
[2025-05-20 23:40] VITALS: BP 132/76
== END 2025-05-20 23:40 | disposition home or self-care (01) ==
LOC: EMR 13:39
PROVIDERS: Student in an Organized Health Care Education/Training Program; EMERGENCY PHYSICIAN Emergency Medicine; FAMILY PHYSICIAN Physician Assistant Medical
DX: U09.9 Post COVID-19 condition, unspecified (principal); R06.00 Dyspnea, unspecified; D72.829 Elevated white blood cell count, unspecified; R07.89 Other chest pain; R53.1 Weakness; Z86.711 Personal history of pulmonary embolism; Z11.52 Encounter for screening for COVID-19; E03.9 Hypothyroidism, unspecified
CPT/HCPCS: 99285; 71046; 80053; 84484; 84703; 85025; 85379; 85610; 87811; 93005

== ENCOUNTER 2025-05-23 21:08 | Emergency (ER) | payer BC, SELFPAY ==
[2025-05-23 21:16] VITALS: BP 133/91
[2025-05-23 21:42] LABS: Hematocrit 42.2 % (37.0-47.0); Hemoglobin 14.5 g/dL (12.0-16.0); Mean Corp Hgb Conc. 34.4 g/dL (33.0-37.0); Mean Corpuscular Volume 84.1 fL (81.0-99.0); Nucleated Red Blood Cells % 0 %; Platelet Count 289 10^3/uL (130-400); Red Cell Dist. Width 13.1 % (11.5-14.5)
[2025-05-23 22:04] LABS: HCG, Serum Qualitative Screen Negative
[2025-05-23 22:05] LABS: Troponin I < 0.012 ng/ml
[2025-05-23 22:13] LABS: ALT (SGPT) 19 U/L (0-35); AST (SGOT) 21 U/L (14-36); Albumin 4.3 g/dl (3.5-5.0); Alkaline Phosphatase 57 U/L (38-126); Blood Urea Nitrogen 15 mg/dl (7-17); Calcium 9.2 mg/dl (8.4-10.2); Carbon Dioxide 22 mmol/L (22-30); Chloride 106 mmol/L (98-107); Glucose 107 mg/dl (70-99); Potassium 4.2 mmol/L (3.5-5.1); Sodium 136 mmol/L (135-145); Total Protein 7.5 g/dl (6.3-8.2); eGFR > 60.00
[2025-05-24 01:17] VITALS: BP 106/65
[2025-05-24 01:18] VITALS: BMI 35.5
--- NOTE | 2025-05-24 04:06 | ED.GENMED ---
History of Present Illness
General
Chief Complaint: Numbness
Source: patient
Exam Limitations: none
Time Seen by Provider: 05/24/25 01:28
Nursing documentation reviewed up to this point in time: agreed with
History of Present Illness
History of Present Illness:
see MDM
Past History
Past History
ED Past Medical History: Hypothyroidism, Other (R vertebral artery dissection, Kidney stones, Vertigo) and Other (Psoriasis)
ED Past Surgical History: , Urological and Other ([place] teeth)
Social History
Tobacco: Non-smoker
Alcohol: Occasional
Personal:
Living: with family
Employment: Employed
Family History
Family History: Other
Review of Systems
Review of Systems
Allergies reviewed?: Yes
All Other Systems: Not applicable
Phy Exam
Physical Exam
Physical Exam:
GENERAL: Alert , in no apparent distress, mildly anxious
EYE: pupils equal and reactive
NECK: Supple
ENT: o/p clr, mmm.
CARDIAC: Regular rate and rhythm . No edema
LUNGS: Clear breath sounds bilaterally, no acute respiratory distress, no wheezes/rales/rhonchi
ABDOMEN: Soft, without focal tenderness, no r/g, no cvat, normal bowel sounds
NEUROLOGICAL: Alert and oriented, no focal neuro deficits, cranial nerves intact, sensation grossly intact, upper extremity lower extremity strength normal
SKIN: Warm and dry, skin intact.
MUSCULOSKELETAL: No edema, well perfused. neg giselle's sign no noticeable calf swelling
PSYCH: Normal and appropriate interaction.
Course
Orders/Labs/Results
Orders:
Orders
05/23/25 21:09
Electrocardiogram (*1) Urgent
Reason for Study: Other
Other Reason for Exam: numbness
05/23/25 21:10
EKG- Treatment ONCE
05/23/25 21:32
Test Result ONCE
05/23/25 21:35
Complete Blood Count/With Diff Urgent
Comprehensive Metabolic Panel Urgent
HCG, Serum Qualitative Screen Urgent
Troponin I Urgent
05/24/25 01:58
CT Chest PE Study Urgent
Comment: h/o PE
Reason For Exam: R pleuritic pain, sob, numbness
Venous Doppler Lwr Ext Rt [US Periph Venous LOWER Ext RT] Urgent
Comment:
Reason For Exam: RLE pain
Abnormal Lab Results
05/23/25
21:35
WBC 18.6 H 10^3/uL
(4.8-10.8)
Abs Immat Gran (auto) 0.1 H 10^3/uL
(0-0.05)
Absolute Neuts (auto) 13.8 H 10^3/uL
(1.4-6.5)
Absolute Lymphs (auto) 3.7 H 10^3/uL
(1.2-3.4)
Absolute Monos (auto) 0.9 H 10^3/uL
(0.1-0.6)
Immature Gran % 0.6 H %
(0-0.5)
Lymphocytes % 19.7 L %
(20.5-51.1)
Glucose 107 H mg/dl
(70-99)
05/23/25 21:35
05/23/25 21:35
Vital Signs
Initial and Last Documented VS:
Initial Vital Signs
Temp Pulse Resp BP Pulse Ox
37.2 C 83 18 133/91 98
05/23/25 21:16 05/23/25 21:16 05/23/25 21:16 05/23/25 21:16 05/23/25 21:16
Last Documented Vital Signs
Temp Pulse Resp BP Pulse Ox
37.2 C 73 18 107/87 99
05/23/25 21:16 05/24/25 05:35 05/24/25 02:26 05/24/25 05:35 05/24/25 05:35
MDM/Problems Addressed
Differential Diagnosis Includes:
see MDM
MDM/Problems Addressed:
Note:
CHIEF COMPLAINT(S)
Difficulty breathing, right-sided chest pain, numbness and tingling in the right arm and leg.
HISTORY OF PRESENT ILLNESS
The patient is a 39-year-old female with a history of pulmonary embolism in 2012 and a past cerebral artery dissection, presenting with persistent trouble breathing and right-sided chest pain, resembling her previous pulmonary embolism. She reports
numbness and tingling in her right arm extending to her fingers and similar sensations in her right leg and toes. She described an episode where heat exposure from a karate class caused her to feel faint, requiring her to sit in a car with air
conditioning. Yesterday, she nearly fainted and caught herself from falling while feeling weak. Today, she experiences significant numbness and pain in her leg, particularly when exerting herself or in heat, which has led to an increased sensation
of pressure in her chest and facial numbness, almost leading to collapse.
The patient recently tested positive for COVID-19 on the second of this month, with initial symptoms of fever and cough that have mostly resolved. However, shortness of breath and fatigue persist. pt was seen here a few daysa go for these symptoms
and had A D-dimer test done recently was negative. Her current white blood cell count is elevated at 18,000, although she reports a history of increased counts during viral infections.
PAST MEDICAL AND SURGICAL HISTORY
Pulmonary embolism in 2012. Cerebral artery dissection (2019), treated with blood pressure medication and aspirin. History of dermatomyositis treated with intravenous immunoglobulin.
CHRONIC MEDICAL CONDITIONS SIGNIFICANTLY AFFECTING CARE
Dermatomyositis.
REVIEW OF SYSTEMS
- Respiratory: Difficulty breathing, particularly with exertion or heat exposure.
- Neurological: Numbness and tingling in the right arm and leg; feeling faint.
- Musculoskeletal: Right-sided chest pain, described as pulling across the right side.
- Cardiovascular: Near syncope episodes.
PHYSICAL EXAM
- General: Patient appears winded with exertion.
- Neurological: Complaints of facial and extremity numbness.
- Respiratory: Reports significant shortness of breath.
Nursing notes reviewed and vital signs reviewed.
PROBLEM LIST
Acute:
- Difficulty breathing and chest pain.
- Numbness and tingling in right arm and leg.
Chronic:
- Dermatomyositis
PLAN
Order a CT scan of the chest with pulmonary embolism studies to evaluate for clots. Conduct an ultrasound of the right leg to assess for deep vein thrombosis. Monitor closely for any changes in neurological or respiratory status. Continue supportive
care for [id number] respiratory symptoms.
DIFFERENTIAL DIAGNOSIS
The Differential Diagnosis includes, in no particular order and is not limited to:
- Pulmonary embolism
- Deep vein thrombosis
- [id number] syndrome
- Neuropathy (secondary to dermatomyositis or other condition)
- Myositis-related symptoms
- Anxiety or panic disorder
- Multiple sclerosis
- Cardiac arrhythmia
- Transient ischemic attack
- Dehydration and electrolyte imbalance
05/24/25 - 05:11
was sleeping soundly; feels better
ct pe neg
A 4 mm nodule was identified in the patients left lower lobe, which will be monitored. The patient likely has post-COVID symptoms but is stable enough to go home. Follow-up will be necessary, and the patient has arranged transportation.
unable to exaplin pt's symptoms but stable for D/C
*Pulse Oximetry
SaO2: 94
Oxygen Mode of Delivery: Room air
Patient hypoxic: no (98)
*Critical Care Note
Total Time (30-74mins, 75-104mins- exclusive of procedures): Not Applicable
ED Attending Note
-
Portions of this chart may have been created with voice recognition software.� Occasional wrong word or��sound alike� substitutions may have occurred due to the inherent limitations of voice recognition software.
Discharge Plan
Departure
Patient Disposition: Home (Routine Discharge)
Date of Disposition: 05/24/25
Time of Disposition: 05:03
Patient with high blood pressure during this ER visit?: No
Condition: Fair
Covid-19: Not Applicable
Discharge Problem:
Leukocytosis, Paresthesia, Shortness of breath
Instructions: Paresthesia (DC), Shortness of breath in adults - ED discharge instructions
Prescriptions:
No Action
albuterol sulfate 1 PUFF HFA aerosol inhaler
2 puff inhalation R Q4HPRN PRN (Reason: sob)
acetaminophen [Tylenol] 325 mg Tablet
650 mg PO Q6HPRN PRN (Reason: mild pain)
therapeutic multivitamin Tablet
1 tab PO DAILY
levothyroxine 125 mcg Tablet
125 mcg PO DAILY@06
ibuprofen [Advil] 200 mg Tablet
400 mg PO Q6HPRN PRN (Reason: mild pain)
norethindrone (contraceptive) [Incassia] 0.35 mg Tablet
0.35 mg PO DAILY
fluticasone propionate 50 mcg/actuation [place],Suspension
1 spray INTRANASAL DAILYPRN PRN (Reason: allergies)
sertraline 50 mg Tablet
50 mg PO DAILY
Sotyktu 6 mg Tablet
6 mg PO DAILY
acetaminophen 650 mg/20.3 mL Solution
650 mg PO Q4HPRN PRN (Reason: fever and pain) Qty: 0 0RF
prednisone 10 mg Tablet
See Rx Instructions .ROUTE .COMPLEX Qty: 15 0RF
Rx Instructions:
Take By Mouth:
40 mg daily x1 day, 30 mg daily x2 days,
20 mg daily x2 days, 10 mg daily x1 day.
amoxicillin-pot clavulanate 875-125 mg tablet
1 tab PO BID Qty: 10 0RF
famotidine [Pepcid] 20 mg tablet
20 mg PO BID Qty: 10 0RF
Referrals:
[place],Serene, PA [Family Provider, Family Practice]
Activity Restrictions/Additional Instructions:
WE ARE NOT SURE THE CAUSE OF YOUR SYMPTOMS
YOU DO HAVE AN ELEVATED WHITE BLOOD CELL COUNT WHICH IS PRETTY COMMON FOR YOU
BUT YOUR OTHER TESTING, ULTRASOUND AND CAT SCAN WERE NEGATIVE
YOU DO HAVE A SMALL 4 MM PULMONARY NODULE IN YOUR LEFT LOWER LOBE WHICH CAN BE MONITORED
SEE YOUR DOCTOR THIS WEEK OR NEXT
RETURN FOR ANY CONCERNS
THIS COULD BE FROM SEQUELAE FROM HAVNIG HAD COVID.
Interventions
Interventions:
*Risk Screen - Suicide Last Done: 05/23/25 21:11
*General Assessment Last Done: 05/23/25 21:16
*Neglect/Abuse Screening Last Done: 05/23/25 21:16
*ED- Fall Risk Assessment Last Done: 05/23/25 21:16
*ED COVID-19 Vaccine History Last Done: 05/23/25 21:16
*Nursing Disposition Last Done: 05/24/25 05:45
ED- Neurological Assessment Last Done: 05/24/25 01:18
Discharge Date and Time
Discharge Date/Time: 05/24/25 05:45
Print Language: ALBANIAN
[2025-05-24 05:35] VITALS: BP 107/87
== END 2025-05-24 05:45 | disposition home or self-care (01) ==
LOC: EMR 21:08
PROVIDERS: Student in an Organized Health Care Education/Training Program; EMERGENCY PHYSICIAN Student in an Organized Health Care Education/Training Program; FAMILY PHYSICIAN Physician Assistant Medical
DX: D72.829 Elevated white blood cell count, unspecified (principal); R20.2 Paresthesia of skin; R06.02 Shortness of breath; E03.9 Hypothyroidism, unspecified; Z86.711 Personal history of pulmonary embolism
CPT/HCPCS: 99284; 71275; 80053; 84484; 84703; 85025; 93005; 93971; Q9967